=== PATIENT | female | born 1990 | race Caucasian/White ===

== ENCOUNTER 2022-01-09 10:58 | Emergency (ER) | payer OTHER ==
[~2022-01-09] VITALS: Ht 170.2 cm; Wt 67.6 kg
--- NOTE | 2022-01-09 11:10 | NUR ---
TO ER BED 4 AWAITING MD CHUNG
--- NOTE | 2022-01-09 11:19 | NUR ---
C/O PALPITATION WHEN SLEEPING AT NIGHT X 1 WEEK
--- NOTE | 2022-01-09 11:55 | NUR ---
BLOOD SAMPLE OBTAINED SENT TO LAB
--- NOTE | 2022-01-09 11:55 | NUR ---
ESTABLISHED IV LINE 20 LEFT AC INFUSING
--- NOTE | 2022-01-09 11:59 | NUR ---
URINE SAMPLE OBTAINED SENT TO LAB
[2022-01-09 12:08] LABS: EOSINOPHILS % (AUTO) 1.8 % (0.0-6.0); HEMATOCRIT 41 % (33-45); HEMOGLOBIN 13.2 g/dL (11.5-14.8); LYMPHOCYTES # (AUTO) 1.9 K/uL (0.8-4.8); LYMPHOCYTES % (AUTO) 40.7 % (20.0-44.0); MEAN CORPUSCULAR HGB CONC 33 g/dl (31.0-36.0); MEAN CORPUSCULAR VOLUME 88 fL (82-100); MONOCYTES # (AUTO) 0.6 K/uL (0.1-1.30); MONOCYTES % (AUTO) 12.1 % (2.0-12.0); NEUTROPHILS # (AUTO) 2.1 K/uL (1.8-8.9); NEUTROPHILS % (AUTO) 44.4 % (43.0-81.0); PLATELET COUNT (AUTO) 256 K/uL (150-450); RED BLOOD CELL COUNT(AUTO) 4.58 MIL/uL (4.0-5.2); WHITE BLOOD COUNT (AUTO) 4.6 K/uL (4.3-11.0)
[2022-01-09 12:14] LABS: CALCIUM, SERUM 8.8 mg/dL (8.5-10.1); CARBON DIOXIDE 26 mmol/L (21-32); CHLORIDE 105 mmol/L (98-107); CREATININE 0.9 mg/dL (0.6-1.3); GLUCOSE 104 mg/dL (74-106); POTASSIUM 3.7 mmol/L (3.5-5.1); SODIUM SERUM 137 mmol/L (136-145); UREA NITROGEN, BLOOD 10 mg/dL (7-18)
[2022-01-09 13:26] VITALS: BP 133/79
--- NOTE | 2022-01-09 13:26 | NUR ---
IV removed. Catheter intact and site benign. Pressure and 4x4 applied to site. No bleeding noted.
--- NOTE | 2022-01-09 13:26 | NUR ---
Patient discharged to home in stable condition. Written and verbal after care instructions given. Patient verbalizes understanding of instruction.
== END 2022-01-09 13:28 | disposition home or self-care (01) ==
LOC: EDBD 11:01 → ER 11:01
DX: R00.2 Palpitations (principal)
CPT/HCPCS: 36415; 71045-TC; 80048-TC; 84443-TC; 84484-TC; 84703-TC; 85025-TC

== ENCOUNTER 2023-09-21 08:59 | Emergency (ER) | payer MEDICAID ==
[~2023-09-21] VITALS: Ht 170.2 cm; Wt 70.3 kg
[2023-09-21 09:31] VITALS: BP 139/81; TEMP 97.7; O2SAT 100
[2023-09-21] MEDS ORDERED: AMOX500C2 PO (10:29)
[2023-09-21] MEDS: IBUPROFEN 600 MG TABLET PO ONE (10:33)
== END 2023-09-21 10:34 | disposition home or self-care (01) ==
LOC: ER 09:11
DX: H92.03 Otalgia, bilateral (principal); R09.81 Nasal congestion; R10.9 Unspecified abdominal pain